=== PATIENT | female | born 1995 | race Caucasian/White ===

== ENCOUNTER 2017-10-09 16:32 | Emergency (ER) | payer MEDICAID ==
[~2017-10-09] VITALS: Ht 172.7 cm; Wt 59.1 kg
[~2017-10-09 16:32] MED LIST: IBUP-1984 PO; NO HOME MEDS; PRED20TA PO
[2017-10-09] MEDS ORDERED: ondansetron/PF 4mg/2ml inj IV ONE (16:40)
[2017-10-09] MEDS ORDERED: normal saline 1000ML IV soln IVB ONE (16:40)
[2017-10-09 17:16] LABS: BASOPHILS % (AUTO) 0.2 % (0-1); EOSINOPHILS # (AUTO) 0.1 X10'3 (0-0.9); EOSINOPHILS % (AUTO) 1.6 % (0-6); HEMATOCRIT 39.3 % (35.0-45.0); HEMOGLOBIN 13.3 g/dl (12.0-16.0); LYMPHOCYTES # (AUTO) 1.4 X10'3 (1.1-4.8); LYMPHOCYTES % (AUTO) 15.5 % (21-51); MEAN CORPUSCULAR HEMOGLOBIN 30.5 PG (27.0-31.0); MEAN CORPUSCULAR HGB CONC 33.9 % (33.0-36.5); MEAN CORPUSCULAR VOLUME 89.9 FL (78-98); MEAN PLATELET VOLUME 9.2 FL (7.4-10.4); MONOCYTES # (AUTO) 0.6 X10'3 (0-0.9); MONOCYTES % (AUTO) 6.7 % (2-12); PLATELET COUNT 197 X10'3 (140-440); RED BLOOD COUNT 4.37 X10'6 (4.20-5.60); RED CELL DISTRIBUTION WIDTH 12.2 % (11.5-14.5); WHITE BLOOD COUNT 9.1 X10'3 (4.5-11.0)
[2017-10-09 17:32] LABS: ALANINE AMINOTRANSFERASE 50 U/L (12-78); ALBUMIN 4.3 G/DL (3.4-5.0); ALBUMIN/GLOBULIN RATIO 1.5 (1.1-1.5); ALKALINE PHOSPHATASE 97 IU/L (20-180); ANION GAP 10 (8-16); ASPARTATE AMINO TRANSFERASE 54 U/L (10-37); BLOOD UREA NITROGEN 11 MG/DL (7-18); BUN/CREATININE RATIO 16.4 (6.6-38.0); CALCIUM 8.9 MG/DL (8.5-10.1); CHLORIDE 105 MMOL/L (99-107); CREATININE 0.67 MG/DL (0.40-0.90); GLUCOSE 102 MG/DL (70-104); LIPASE 966 U/L (73-393); POTASSIUM 3.7 MMOL/L (3.5-5.1); SODIUM 142 MMOL/L (135-145); TOTAL CARBON DIOXIDE 26.8 MMOL/L (24-32); TOTAL PROTEIN 7.1 G/DL (6.4-8.2); eGFR > 90 ML/MIN
[2017-10-09 18:03] LABS: CLARITY,URINE Clear (Clear); COLOR,URINE Yellow (Yellow); GLUCOSE, URINE Negative (Neg); KETONES,URINE Negative (Neg); LEUKOCYTE ESTERASE ,URINE Negative (Neg); NITRITES, URINE Negative (Neg); OCCULT BLOOD,URINE Negative (Neg); PROTEIN,URINE Negative (Neg); UROBILINOGEN,URINE 0.2 E.U/dL (0.2-1.0)
[2017-10-09 18:05] LABS: URINE HCG NEGATIVE (NEG)
[2017-10-09 18:09] LABS: UA COLLECTION TYPE CLN CATCH MIDSTREAM
[2017-10-09 18:13] LABS: URINE AMPHETAMINE SCREEN NEGATIVE (Neg); URINE BARBITUATE SCREEN NEGATIVE (Neg); URINE BENZODIAZEPINES SCREEN NEGATIVE (Neg); URINE CANNABINOID SCREEN NEGATIVE (Neg); URINE COCAINE SCREEN NEGATIVE (Neg); URINE METHADONE SCREEN NEGATIVE (Neg); URINE OPIATE SCREEN NEGATIVE (Neg); URINE PHENCYCLIDINE SCREEN NEGATIVE (Neg)
[2017-10-09 18:15] LABS: CHOL/HDL RATIO 2.4 (0.00-4.99); CHOLESTEROL 127 MG/DL (0-200); ETHANOL < 0.010 GM/DL (0.0-0.010); HDL CHOLESTEROL 52 MG/DL (35-60); LDL CHOLESTEROL 73 MG/DL (50-100); TRIGLYCERIDES 72 MG/DL (20-135)
[2017-10-09] MEDS ORDERED: ONDA4TAB9 PO (19:20)
[2017-10-09 20:00] VITALS: BP 120/57
== END 2017-10-09 20:04 | disposition home or self-care (01) ==
LOC: ER 16:32
DX: K80.20 Calculus of gallbladder without cholecystitis without obstruction (principal); K85.90 Acute pancreatitis without necrosis or infection, unspecified; R10.84 Generalized abdominal pain; Z88.6 Allergy status to analgesic agent; Z88.5 Allergy status to narcotic agent; Z79.899 Other long term (current) drug therapy
CPT/HCPCS: 36415; 74176; 80053; 80061; 80305; 80320; 81003; 81025; 83690; 85025; 96361; 96374; 96375; 96376; 99285; J2270; J2405; J7030

== ENCOUNTER 2017-10-12 20:09 | Inpatient (IN) | payer MEDICAID ==
[~2017-10-12] VITALS: Ht 172.7 cm; Wt 60.0 kg
[~2017-10-12 20:09] MED LIST changes: +ONDA4TAB9 PO
[2017-10-12] MEDS ORDERED: ondansetron/PF 4mg/2ml inj IV ONE ×3 (21:15→23:05)
[2017-10-12] MEDS ORDERED: normal saline 1000ML IV soln IVB ONE (21:15)
[2017-10-12 21:27] LABS: BASOPHILS % (AUTO) 0.3 % (0-1); EOSINOPHILS # (AUTO) 0.1 X10'3 (0-0.9); EOSINOPHILS % (AUTO) 2.1 % (0-6); HEMATOCRIT 37.4 % (35.0-45.0); HEMOGLOBIN 12.6 g/dl (12.0-16.0); LYMPHOCYTES % (AUTO) 33.4 % (21-51); MEAN CORPUSCULAR HEMOGLOBIN 30.2 PG (27.0-31.0); MEAN CORPUSCULAR HGB CONC 33.6 % (33.0-36.5); MEAN CORPUSCULAR VOLUME 89.8 FL (78-98); MEAN PLATELET VOLUME 8.5 FL (7.4-10.4); MONOCYTES # (AUTO) 0.3 X10'3 (0-0.9); MONOCYTES % (AUTO) 5.6 % (2-12); NEUTROPHILS # (AUTO) 3.4 X10'3 (1.8-7.7); NEUTROPHILS % (AUTO) 58.6 % (42-75); PLATELET COUNT 200 X10'3 (140-440); RED BLOOD COUNT 4.17 X10'6 (4.20-5.60); RED CELL DISTRIBUTION WIDTH 12.5 % (11.5-14.5); WHITE BLOOD COUNT 5.9 X10'3 (4.5-11.0)
[2017-10-12 21:45] LABS: ALANINE AMINOTRANSFERASE 215 U/L (12-78); ALBUMIN 3.9 G/DL (3.4-5.0); ALBUMIN/GLOBULIN RATIO 1.4 (1.1-1.5); ALKALINE PHOSPHATASE 167 IU/L (20-180); ANION GAP 5 (8-16); ASPARTATE AMINO TRANSFERASE 49 U/L (10-37); BILIRUBIN,TOTAL 0.3 MG/DL (0.1-1.0); BLOOD UREA NITROGEN 14 MG/DL (7-18); BUN/CREATININE RATIO 20.9 (6.6-38.0); CALCIUM 8.2 MG/DL (8.5-10.1); CHLORIDE 110 MMOL/L (99-107); CREATININE 0.67 MG/DL (0.40-0.90); GLUCOSE 106 MG/DL (70-104); LIPASE 100 U/L (73-393); POTASSIUM 3.8 MMOL/L (3.5-5.1); SODIUM 144 MMOL/L (135-145); TOTAL PROTEIN 6.6 G/DL (6.4-8.2); eGFR > 90 ML/MIN
[2017-10-13] VITALS (14 sets, daily range): BP systolic 116–153; BP diastolic 43–97
[2017-10-13] MEDS ORDERED: ONDANSETRON 4 MG (00:31)
[2017-10-13] MEDS ORDERED: mag hydrox/Alum hydrox/simeth 30ml oral suspension PO PRN (02:05)
[2017-10-13] MEDS ORDERED: magnesium hydroxide 30ml (MOM) UD suspension PO PRN (02:05)
[2017-10-13] MEDS: normal saline 1000ml 1,000 ML IV SCH ×3 (02:31→19:08)
[2017-10-13] MEDS: ondansetron/PF 4mg/2ml inj IV PRN ×3 (03:04→20:10)
[2017-10-13] MEDS ORDERED: metoclopramide 5 mg/ml inj IV ONE (08:05)
[2017-10-13] MEDS ORDERED: BUPIVAcaine/PF 2.5 mg/ml (0.25%) 30ml vial ONE (16:16)
[2017-10-13] MEDS ORDERED: LIDOcaine 1% 30ml vial 30 ML ONE (16:16)
[2017-10-13] MEDS ORDERED: ringers solution, lacted 1,000 ML IV SCH (16:54)
[2017-10-13] MEDS ORDERED: meperidine/PF 25mg/ml syringe IV PRN ×2 (16:55)
[2017-10-13] MEDS ORDERED: proCHLORperazine 10 MG/2 ml inj IV PRN (16:55)
[2017-10-13] MEDS ORDERED: ondansetron/PF 4mg/2ml inj IV PRN (16:55)
[2017-10-13] MEDS ORDERED: fentaNYL/PF 50MCG/1 ML 2ML syringe ONE (16:57)
[2017-10-13] MEDS ORDERED: midazolam 2 mg/2 ml injection ONE (16:58)
[2017-10-13] MEDS ORDERED: LIDOcaine 2% (20mg/ml) 5ml vial ONE (16:58)
[2017-10-13] MEDS ORDERED: rocuronium 10mg/ml inj IV ONE (16:58)
[2017-10-13] MEDS ORDERED: propofol inj 20 ML IV ONE (16:58)
[2017-10-13] MEDS ORDERED: neostigmine methylsulfate 1 MG/ML 10ml vial ONE (17:36)
[2017-10-13] MEDS ORDERED: glycopyrrolate 0.2mg/ml inj ONE (17:36)
[2017-10-13] MEDS ORDERED: ondansetron/PF 4mg/2ml inj ONE (17:37)
[2017-10-13] MEDS ORDERED: dexamethasone sod phosphate 4mg/ml inj. ONE (17:37)
[2017-10-13] MEDS: meperidine/PF 25mg/ml syringe IV PRN ×2 (18:24→18:45)
[2017-10-14] VITALS: BP 120/66
[2017-10-14] MEDS: oxyCODONE/APAP 5-325mg tablet PO PRN ×2 (02:55→09:56)
[2017-10-14 04:00] VITALS: BP 125/74
[2017-10-14] MEDS: ondansetron/PF 4mg/2ml inj IV PRN (04:51)
[2017-10-14] MEDS: normal saline 1000ml 1,000 ML IV SCH (04:56)
[2017-10-14 06:25] LABS: BASOPHILS % (AUTO) 0.1 % (0-1); EOSINOPHILS # (AUTO) 0.1 X10'3 (0-0.9); EOSINOPHILS % (AUTO) 1.2 % (0-6); HEMATOCRIT 37.1 % (35.0-45.0); HEMOGLOBIN 12.8 g/dl (12.0-16.0); LYMPHOCYTES # (AUTO) 0.6 X10'3 (1.1-4.8); LYMPHOCYTES % (AUTO) 9.8 % (21-51); MEAN CORPUSCULAR HEMOGLOBIN 30.7 PG (27.0-31.0); MEAN CORPUSCULAR HGB CONC 34.6 % (33.0-36.5); MEAN CORPUSCULAR VOLUME 88.8 FL (78-98); MONOCYTES # (AUTO) 0.2 X10'3 (0-0.9); MONOCYTES % (AUTO) 2.6 % (2-12); NEUTROPHILS # (AUTO) 5.6 X10'3 (1.8-7.7); NEUTROPHILS % (AUTO) 86.3 % (42-75); PLATELET COUNT 201 X10'3 (140-440); RED BLOOD COUNT 4.18 X10'6 (4.20-5.60); RED CELL DISTRIBUTION WIDTH 12.1 % (11.5-14.5); WHITE BLOOD COUNT 6.4 X10'3 (4.5-11.0)
[2017-10-14 06:56] LABS: ALANINE AMINOTRANSFERASE 161 U/L (12-78); ALBUMIN 3.7 G/DL (3.4-5.0); ALBUMIN/GLOBULIN RATIO 1.2 (1.1-1.5); ALKALINE PHOSPHATASE 144 IU/L (20-180); ANION GAP 10 (8-16); ASPARTATE AMINO TRANSFERASE 42 U/L (10-37); BILIRUBIN,TOTAL 0.6 MG/DL (0.1-1.0); BLOOD UREA NITROGEN 8 MG/DL (7-18); BUN/CREATININE RATIO 13.6 (6.6-38.0); CHLORIDE 103 MMOL/L (99-107); CREATININE 0.59 MG/DL (0.40-0.90); GLUCOSE 140 MG/DL (70-104); POTASSIUM 3.9 MMOL/L (3.5-5.1); SODIUM 138 MMOL/L (135-145); TOTAL CARBON DIOXIDE 24.8 MMOL/L (24-32); TOTAL PROTEIN 6.7 G/DL (6.4-8.2); eGFR > 90 ML/MIN
[2017-10-14 08:00] VITALS: BP 127/84
[2017-10-14 11:53] VITALS: BP 116/61
[2017-10-14] MEDS ORDERED: PER5325T PO (13:48)
== END 2017-10-14 15:11 | disposition home or self-care (01) | DRG 263 ==
LOC: ER 20:10 → ED HOLD 10-13 02:02 → SUR 3N 10-13 16:16 → PACU 10-13 17:18 → SUR 3N 10-13 19:13
PROVIDERS: ADMIT Internal Medicine; ATTEND Internal Medicine
PROC: 0FT44ZZ Resection of Gallbladder, Percutaneous Endoscopic Approach (ICD-10-PCS; principal; 2017-10-13 16:58)
DX: K80.00 Calculus of gallbladder with acute cholecystitis without obstruction (principal); K85.90 Acute pancreatitis without necrosis or infection, unspecified; R00.1 Bradycardia, unspecified; Z88.5 Allergy status to narcotic agent; Z88.6 Allergy status to analgesic agent; Z88.8 Allergy status to other drugs, medicaments and biological substances
CPT/HCPCS: 36415; 76700; 80053; 83690; 85025; 96361; 96374; 96375; 96376; 99285; A7000; J1100; J2001; J2175; J2250; J2270; J2405; J2704; J2710; J2765; J3010; J3490; J7030; J7120

== ENCOUNTER 2017-10-28 11:23 | Emergency (ER) | payer MEDICAID ==
[~2017-10-28] VITALS: Ht 172.7 cm; Wt 57.2 kg
[~2017-10-28 11:23] MED LIST changes: +ONDANSETRON 4 MG; +PER5325T PO
[2017-10-28] MEDS ORDERED: oseltamivir phos 75mg capsule PO ONE (12:30)
[2017-10-28] MEDS ORDERED: normal saline 1000ml 1,000 ML IV ONE (12:30)
[2017-10-28] MEDS ORDERED: ondansetron/PF 4mg/2ml inj IV ONE (12:30)
[2017-10-28] MEDS ORDERED: TAM75C PO ×2 (12:39)
[2017-10-28 13:40] VITALS: BP 107/62
== END 2017-10-28 13:59 | disposition home or self-care (01) ==
LOC: ER 11:25
DX: J11.1 Influenza due to unidentified influenza virus with other respiratory manifestations (principal); Z90.49 Acquired absence of other specified parts of digestive tract; Z88.5 Allergy status to narcotic agent; R11.2 Nausea with vomiting, unspecified
CPT/HCPCS: 87502; 87503; 96374; 99284; J2405; J7030

== ENCOUNTER → 2018-03-06 | Emergency (ER) | payer MEDICAID ==
[~2018-03-06] VITALS: Ht 172.7 cm; Wt 59.8 kg
[~2018-03-06] MED LIST changes: -IBUP-1984 PO; +IBUP-1985 PO; -ONDA4TAB9 PO; -ONDANSETRON 4 MG; -PRED20TA PO
[2018-03-06 15:09] VITALS: BP 121/90
== END | disposition home or self-care (01) ==
LOC: ER 14:17
DX: M25.561 Pain in right knee (principal); Z88.5 Allergy status to narcotic agent; Z88.6 Allergy status to analgesic agent; Z79.899 Other long term (current) drug therapy; Z90.49 Acquired absence of other specified parts of digestive tract; X50.1XXA Overexertion from prolonged static or awkward postures, initial encounter; Y93.89 Activity, other specified; Y92.814 Boat as the place of occurrence of the external cause; Y99.8 Other external cause status
CPT/HCPCS: 29505; 73560; 99284

== ENCOUNTER 2022-01-13 11:00 | Emergency (ER) | payer MEDICAID ==
[~2022-01-13] VITALS: Ht 172.7 cm; Wt 64.2 kg
[2022-01-13 11:12] VITALS: BP 115/64
[2022-01-13] MEDS ORDERED: PHEN1SUP96 PR (12:38)
== END 2022-01-13 12:45 | disposition home or self-care (01) ==
LOC: ER 11:01
DX: K62.5 Hemorrhage of anus and rectum (principal); Z90.49 Acquired absence of other specified parts of digestive tract; Z88.6 Allergy status to analgesic agent; Z88.8 Allergy status to other drugs, medicaments and biological substances; Z79.899 Other long term (current) drug therapy
CPT/HCPCS: 99282